=== PATIENT | female | born 1950 | race Caucasian/White ===

== ENCOUNTER 2019-11-22 19:49 | Emergency (ER) | payer MEDICARE ==
--- NOTE | 2019-11-22 20:49 | ERPHSYRPT ---
- History of Present Illness Time Seen by Provider: 11/22/19 20:30 Source: patient, family Exam Limitations: no limitations Physician History: 69 y/o white female with h/o chronic anxiety and panic disorder presents with 2 day h/o worsening anxiety. pt take lorazepam tid. last dose 2pm. pt denies cp, denies abd pain. pt states she cannot be admitted or transferred because she has to care for her . pt denies suicidal thoughts and denies homicidal thoughts. she agrees to to blood draw, urinalysis, and ekg then would like something for sleep tonight so she can be evaluated by her pcp in the am. Timing/Duration: day(s) (2) Severity of Symptoms-Max: moderate Severity of Symptoms-Current: moderate Context related to: other (chronic intermittent issue) Associated Symptoms: anxiety, No ingestion, No suicidal ideation Previous symptoms: same symptoms as today Allergies/Adverse Reactions: Sulfa (Sulfonamide Antibiotics) Adverse Reaction (Verified 11/22/19 20:48) Swelling of Tongue and Lips Home Medications: Levothyroxine Sodium 100 Mcg [Synthroid 100 Mcg] 100 mcg PO DAILY 11/22/19 [History] Levothyroxine Sodium 25 Mcg [Synthroid 25 Mcg] 25 mcg PO DAILY 11/22/19 [ History] Lorazepam 1 mg PO TID PRN PRN 11/22/19 [History] Trazodone HCl 50 mg PO HS 11/22/19 [History] - Past Medical History Neurological History: No Pertinent History ENT History: No Pertinent History Cardiac History: No Pertinent History Respiratory History: No Pertinent History Endocrine Medical History: No Pertinent History Musculoskeletal History: No Pertinent History GI Medical History: No Pertinent History History: No Pertinent History Psycho-Social History: No Pertinent History Female Reproductive Disorders: No Pertinent History - Past Surgical History Neuro Surgical History: No Pertinent History Cardiac: No Pertinent History Respiratory: No Pertinent History Gastrointestinal: No Pertinent History Genitourinary: No Pertinent History Musculoskeletal: No Pertinent History Female Surgical History: No Pertinent History - Review of Systems Constitutional: No Symptoms Eyes: No Symptoms Ears, Nose, & Throat: No Symptoms Respiratory: No Symptoms Cardiac: No Symptoms Abdominal/Gastrointestinal: No Symptoms Genitourinary Symptoms: No Symptoms Musculoskeletal: No Symptoms Psychological: Anxiety, No Alcohol Abuse, No Suicidal Ideations, No Homicidal Ideations, No Hallucinations Endocrine: No Symptoms Hematologic/Lymphatic: No Symptoms Immunological/Allergic: No Symptoms All Other Systems: Reviewed and Negative - Nursing Vital Signs Nursing Vital Signs: Initial Vital Signs Temperature 97.9 F 11/22/19 20:22 Pulse Rate 75 11/22/19 20:22 Respiratory Rate 22 11/22/19 20:22 Blood Pressure 224/104 11/22/19 20:22 O2 Sat by Pulse Oximetry 98 11/22/19 20:22 Pain Scale Pain Intensity 0 - Physical Exam General Appearance: no apparent distress, alert, anxiety Eyes, Ears, Nose, Throat Exam: normal ENT inspection, moist mucous membranes Neck Exam: normal inspection, non-tender, supple, full range of motion Respiratory Exam: normal breath sounds, lungs clear, airway intact, No chest tenderness, No respiratory distress Cardiovascular Exam: regular rate/rhythm, normal heart sounds, normal peripheral pulses Gastrointestinal/Abdominal Exam: soft, normal bowel sounds, No tenderness Neurological Exam: alert, normal mood/affect, calm, speed winder II-XII nml as tested, oriented x 3 Appearance: appropriate appearance Behavior/Eye Contact/Speech: alert & cooperative Thoughts/Hallucinations: normal thought pattern, no apparent hallucination, obsessive, No auditory hallucinations Skin Exam: normal color, warm, dry SpO2 Interpretation: normal SpO2: 98 O2 Delivery: Room Air Ordered Tests: Active Orders 24 hr Category Date Time Status EKG-ER Only STAT Care 11/22/19 20:54 Active IV Insertion STAT Care 11/22/19 20:54 Active ACETAMINOPHEN Stat Lab 11/22/19 21:19 Completed CBC W DIFF Stat Lab 11/22/19 21:19 Completed CMP Stat Lab 11/22/19 21:19 Completed ETHYL ALCOHOL Stat Lab 11/22/19 21:19 Completed Manual Differential NC Stat Lab 11/22/19 21:19 Completed SALICYLATE Stat Lab 11/22/19 21:19 Completed UA W/RFX UR CULTURE Stat Lab 11/22/19 21:30 Completed Urine Triage Profile Stat Lab 11/22/19 21:30 Completed Medication Summary Discontinued Medications Generic Name Dose Route Start Last Admin Trade Name Freq PRN Reason Stop Dose Admin Lorazepam 1 mg 11/22/19 20:54 11/22/19 21:30 Ativan 2 Mg/1 Ml Vial IV 11/22/19 20:55 1 mg STAT ONE Administration Lorazepam Confirm 11/22/19 21:25 Ativan 2 Mg/1 Ml Vial Administered 11/22/19 21:26 Dose 2 mg .ROUTE .STK-MED ONE Lab/Rad Data: Laboratory Result Diagrams 11/22/19 21:19 11/22/19 21:19 Laboratory Results 11/22/19 11/22/19 11/22/19 Range/Units 21:30 21:30 21:19 WBC (4.0-10.5) K/mm3 RBC (4.1-5.4) M/mm3 Hgb (12.0-16.0) gm/dl Hct (35-47) % MCV (78-100) fl MCH (26-32) pg MCHC (32-36) g/dl RDW (11.5-14.0) % Plt Count (150-450) K/mm3 MPV (7.5-11.0) fl Sodium 142 (137-145) mmol/L Potassium 3.8 (3.5-5.1) mmol/L Chloride 102 (98-107) mmol/L Carbon Dioxide 29 (22-30) mmol/L Anion Gap 14.4 (5-15) MEQ/L BUN 22 H (7-17) mg/dL Creatinine 0.74 (0.52-1.04) mg/dL Estimated GFR > 60.0 ML/MIN Glucose 106 (74-106) mg/dL Calcium 10.5 H (8.4-10.2) mg/dL Total Bilirubin 0.40 (0.2-1.3) mg/dL AST 24 (14-36) U/L ALT 16 (0-35) U/L Alkaline Phosphatase 62 (38-126) U/L Serum Total Protein 7.9 (6.3-8.2) g/dL Albumin 4.7 (3.5-5.0) g/dL Urine Color COLORLESS (YELLOW) Urine Appearance CLEAR (CLEAR) Urine pH 7.0 (5-6) Ur Specific [place] 1.004 (1.005-1.025) Urine Protein NEGATIVE (Negative) Urine Ketones NEGATIVE (NEGATIVE) Urine Blood NEGATIVE (0-5) Fili/ul Urine Nitrite NEGATIVE (NEGATIVE) Urine Bilirubin NEGATIVE (NEGATIVE) Urine Urobilinogen NEGATIVE (0-1) mg/dL Ur Leukocyte Esterase SMALL (NEGATIVE) Urine WBC (Auto) 0-2 (0-5) /HPF Urine RBC (Auto) NONE (0-2) /HPF U Epithel Cells (Auto) NONE (FEW) /HPF Urine Bacteria (Auto) NONE (NEGATIVE) /HPF Urine Mucus (Auto) SLIGHT (NEGATIVE) /HPF Urine Culture Reflexed NO (NO) Urine Glucose NEGATIVE (NEGATIVE) mg/dL Salicylates < 1.0 L (2-20) mg/dL Urine Opiates Level NEGATIVE (NEGATIVE) Ur Methadone NEGATIVE (NEGATIVE) Acetaminophen < 10 L (10-30) ug/ml Urine Barbiturates NEGATIVE (NEGATIVE) Ur Phencyclidine (PCP) NEGATIVE (NEGATIVE) Urine Amphetamine NEGATIVE (NEGATIVE) U Benzodiazepine Level NEGATIVE (NEGATIVE) Urine Cocaine NEGATIVE (NEGATIVE) Urine Marijuana (THC) NEGATIVE (NEGATIVE) Ethyl Alcohol < 10 (0-10) mg/dL 11/22/19 Range/Units 21:19 WBC 6.1 (4.0-10.5) K/mm3 RBC 4.41 (4.1-5.4) M/mm3 Hgb 13.5 (12.0-16.0) gm/dl Hct 40.9 (35-47) % MCV 92.7 (78-100) fl MCH 30.6 (26-32) pg MCHC 33.0 (32-36) g/dl RDW 13.7 (11.5-14.0) % Plt Count 156 (150-450) K/mm3 MPV 10.6 (7.5-11.0) fl Sodium (137-145) mmol/L Potassium (3.5-5.1) mmol/L Chloride (98-107) mmol/L Carbon Dioxide (22-30) mmol/L Anion Gap (5-15) MEQ/L BUN (7-17) mg/dL Creatinine (0.52-1.04) mg/dL Estimated GFR ML/MIN Glucose (74-106) mg/dL Calcium (8.4-10.2) mg/dL Total Bilirubin (0.2-1.3) mg/dL AST (14-36) U/L ALT (0-35) U/L Alkaline Phosphatase (38-126) U/L Serum Total Protein (6.3-8.2) g/dL Albumin (3.5-5.0) g/dL Urine Color (YELLOW) Urine Appearance (CLEAR) Urine pH (5-6) Ur Specific [place] (1.005-1.025) Urine Protein (Negative) Urine Ketones (NEGATIVE) Urine Blood (0-5) Fili/ul Urine Nitrite (NEGATIVE) Urine Bilirubin (NEGATIVE) Urine Urobilinogen (0-1) mg/dL Ur Leukocyte Esterase (NEGATIVE) Urine WBC (Auto) (0-5) /HPF Urine RBC (Auto) (0-2) /HPF U Epithel Cells (Auto) (FEW) /HPF Urine Bacteria (Auto) (NEGATIVE) /HPF Urine Mucus (Auto) (NEGATIVE) /HPF Urine Culture Reflexed (NO) Urine Glucose (NEGATIVE) mg/dL Salicylates (2-20) mg/dL Urine Opiates Level (NEGATIVE) Ur Methadone (NEGATIVE) Acetaminophen (10-30) ug/ml Urine Barbiturates (NEGATIVE) Ur Phencyclidine (PCP) (NEGATIVE) Urine Amphetamine (NEGATIVE) U Benzodiazepine Level (NEGATIVE) Urine Cocaine (NEGATIVE) Urine Marijuana (THC) (NEGATIVE) Ethyl Alcohol (0-10) mg/dL - Progress Progress: improved Counseled pt/family regarding: lab results, diagnosis, need for follow-up, rad results - Departure Departure Disposition: Home Clinical Impression: Anxiety, Panic attack Condition: Stable Critical Care Time: No Referrals: BILLY LEYVA [NON-STAFF PHY W/O PRIVILEGES] - Additional Instructions: take your medications as prescribed. follow up with your primary doctor tomorrow morning as you have planned.
[2019-11-22] MEDS ORDERED: Ativan 2 MG/1 ML VIAL IV ONE ×2 (20:54→22:45)
[2019-11-22 21:21] LABS: Hematocrit 40.9 % (35-47); Hemoglobin 13.5 gm/dl (12.0-16.0); Mean Cell Volume 92.7 fl (78-100); Mean Corpuscular Hemoglobin 30.6 pg (26-32); Mean Platelet Volume 10.6 fl (7.5-11.0); Platelet Count 156 K/mm3 (150-450); Red Blood Count 4.41 M/mm3 (4.1-5.4); Red Cell Distribution Width 13.7 % (11.5-14.0); White Blood Count 6.1 K/mm3 (4.0-10.5)
[2019-11-22] MEDS ORDERED: Ativan 2 MG/1 ML VIAL ONE ×2 (21:25→23:00)
[2019-11-22 21:37] LABS: ALBUMIN 4.7 g/dL (3.5-5.0); ALKALINE PHOSPHATASE 62 U/L (38-126); ANION GAP 14.4 MEQ/L (5-15); BLOOD UREA NITROGEN 22 mg/dL (7-17); CHLORIDE 102 mmol/L (98-107); Calcium 10.5 mg/dL (8.4-10.2); Carbon Dioxide 29 mmol/L (22-30); Creatinine 1 0.74 mg/dL (0.52-1.04); Glucose 106 mg/dL (74-106); Potassium 3.8 mmol/L (3.5-5.1); SGOT/AST 24 U/L (14-36); SGPT/ALT 16 U/L (0-35); SODIUM 142 mmol/L (137-145); Total Protein 7.9 g/dL (6.3-8.2)
[2019-11-22 21:38] LABS: Appearance CLEAR (CLEAR); Bilirubin NEGATIVE (NEGATIVE); Blood NEGATIVE Ery/ul (0-5); Glucose NEGATIVE (NEGATIVE); Ketones NEGATIVE (NEGATIVE); Leukocyte Esterase SMALL (NEGATIVE); Mucus SLIGHT /HPF (NEGATIVE); Nitrite NEGATIVE (NEGATIVE); Protein,Urine Dip NEGATIVE (Negative); Specific Gravity 1.004 (1.005-1.025); Urobilinogen NEGATIVE mg/dL (0-1); WBC 0-2 /HPF (0-5)
[2019-11-22 21:39] LABS: ACETAMINOPHEN < 10 ug/ml (10-30); ETHYL ALCOHOL < 10 mg/dL (0-10); SALICYLATE < 1.0 mg/dL (2-20)
[2019-11-22 21:57] LABS: Amphetamine,Urine NEGATIVE (NEGATIVE); Barbiturate,Urine NEGATIVE (NEGATIVE); Benzodiazepine,Urine NEGATIVE (NEGATIVE); Methadone,Urine NEGATIVE (NEGATIVE); Opiate,Urine NEGATIVE (NEGATIVE); PCP,Urine NEGATIVE (NEGATIVE); THC,Urine NEGATIVE (NEGATIVE)
[2019-11-22 22:03] LABS: Cocaine,Urine NEGATIVE (NEGATIVE)
[2019-11-22 23:09] VITALS: BP 184/88
[2019-11-22 23:20] VITALS: PULSE 65; O2SAT 94
[2019-11-22 23:58] LABS: Lymphocytes 44 % (24-44); Monocyte 3 % (0.0-12.0); Neutrophils 53 % (36.0-66.0); Platelet Estimate NORMAL (NORMAL); Total Cells Counted 100
== END 2019-11-22 23:20 | disposition home or self-care (01) ==
LOC: ED 19:49
DX: F41.9 Anxiety disorder, unspecified (principal); F41.0 Panic disorder [episodic paroxysmal anxiety]
CPT/HCPCS: 36000; 36415; 80053; 80307; 81001; 85025; 93005; 96374; 99284; G0480; G0481; J2060

== ENCOUNTER 2024-11-06 09:52 | Emergency (ER) | payer MEDICARE ==
[2024-11-06 10:15] VITALS: TEMP 97.9
--- NOTE | 2024-11-06 10:26 | ERPHSYRPT ---
- History of Present Illness Time Seen by Provider: 11/06/24 10:26 Source: patient Exam Limitations: no limitations Patient Subjective Stated Complaint: UTI symptoms/fall Triage Nursing Assessment: Patient brought into ED per w/c and transferred self to bed. Patient A+O X 3. Patient's skin pink, warm and dry. Patient complains of fall and UTI symptoms. Patient reports having 2 falls within the past week due to low blood sugar. Patient complains of right lower back pain 5/10. Patient has mulitple healing bruises noted to right hip and urmila arms. Patient also complains dysuria and hematuria that started this am. Physician History: The patient presents with burning and blood in the urine, and a recent fall with head injury. She experienced a fall on morning, resulting in a head injury and significant back pain. She is on Plavix, which raises concerns about potential bleeding. She does not recall hitting any other part of her body during the fall. No hip pain is reported, and she can move her hip with good strength. She reports a burning sensation and blood in her urine, which is a primary reason for seeking medical attention. Occasional nausea is also noted, but there is no history of kidney stones. She has been experiencing persistent diarrhea since casey COVID-19 in September. There has been no antibiotic use, and no blood has been noticed in the stool. The diarrhea is frequent enough that she might be able to provide a sample during the visit. She experienced a significant drop in blood sugar, recorded at 36, which was noticed on Thursday after appearing 'out of it' on . The blood sugar level has since returned to normal. Occurred: days ago (4) Reason for Fall: lightheaded Injuries/Pain Location: head, back (right) Loss of Consciousness: no loss of consciousness Quality: sharpness (right flank) Severity of Pain-Max: moderate Severity of Pain-Current: moderate Modifying Factors: Improves With: nothing. Worsens With: movement Associated Symptoms (Fall): back pain (right flank), confusion, dizziness, headache, nausea, No abdominal pain, No chest pain, No extremity injury, No neck pain, No shortness of breath, No slurred speech, No vomiting Allergies/Adverse Reactions: Sulfa (Sulfonamide Antibiotics) Adverse Reaction (Verified 11/06/24 10:17) Swelling of Tongue and Lips Home Medications: LORazepam [Lorazepam] 1 mg PO TID PRN PRN 11/22/19 [History] Levothyroxine Sodium 100 Mcg [Synthroid 100 Mcg] 100 mcg PO DAILY 11/22/19 [History] Levothyroxine Sodium 25 Mcg [Synthroid 25 Mcg] 25 mcg PO DAILY 11/22/19 [History] Trazodone HCl 50 mg PO HS 11/22/19 [History] Hx Tetanus, Diphtheria Vaccination/Date Given: Yes Hx Influenza Vaccination/Date Given: Yes Hx Pneumococcal Vaccination/Date Given: No Immunizations Up to Date: Yes Travel Risk - International Travel Have you traveled outside of the country in past 3 weeks: No - Emerging Infectious Disease Are you exhibiting symptoms associated with any current EIDs: No - Review of Systems All Other Systems: Reviewed and Negative - Past Medical History Pertinent Past Medical History: No Neurological History: No Pertinent History ENT History: No Pertinent History Cardiac History: Coronary Artery Disease, Hypertension Respiratory History: No Pertinent History Endocrine Medical History: Hypothyroidism Musculoskeletal History: No Pertinent History GI Medical History: No Pertinent History History: No Pertinent History Psycho-Social History: Anxiety, Depression Female Reproductive Disorders: No Pertinent History Other Medical History: OCD - Past Surgical History Past Surgical History: Yes Neuro Surgical History: No Pertinent History Cardiac: No Pertinent History Respiratory: No Pertinent History Gastrointestinal: No Pertinent History Genitourinary: No Pertinent History Musculoskeletal: No Pertinent History Female Surgical History: No Pertinent History - Social History Smoking Status: Never smoker Exposure to second hand smoke: No Drug Use: none Patient Lives Alone: No - Social Determinants of Health Will the patient participate in the screening: Yes Do you worry about a steady place to live?: No Do you have any problems with any of the following?: No known problems In the past 12 months,have you had to go without utilities?: No Transportation Issues: No Has anyone in your support network made you feel unsafe?: No Have you or anyone in your house had to go without enough: No - Nursing Vital Signs Nursing Vital Signs: Initial Vital Signs Temperature 97.9 F 11/06/24 10:06 Pulse Rate 68 11/06/24 10:06 Respiratory Rate 20 11/06/24 10:06 Blood Pressure 173/68 11/06/24 10:06 O2 Sat by Pulse Oximetry 98 11/06/24 10:06 Pain Scale Pain Intensity 5 - Kennedy Coma Score Best Eye Response (Kennedy): (4) open spontaneously Best Verbal Response (Kennedy): (5) oriented Best Motor Response (Kennedy): (6) obeys commands Kennedy Total: 15 - Physical Exam General Appearance: no apparent distress Head Injury: no evidence of injury Eye Exam: PERRL/EOMI, eyes nml inspection ENT Exam: airway nml Neck Exam: supple, trachea midline, full range of motion, normal alignment Respiratory/Chest Exam: No respiratory distress Cardiovascular Exam: regular rate/rhythm, No edema Gastrointestinal Exam: soft, tenderness (right flank), No distention, No mass, No guarding Back Exam: CVA tenderness (right) Neurologic Exam: alert, oriented x 3, cooperative, normal mood/affect, nml cerebellar function Skin Exam: normal color, warm, dry, No rash SpO2 Interpretation: normal SpO2: 98 O2 Delivery: Room Air - Course Nursing assessment & vital signs reviewed: Yes - CT Exams Head CT Interpretation: Tele-radiologist Report, Other (right parietooccipital hypodense area of encephalomalacia likely old ischemic/vascular insult, micr ovascular ischemic changes with b/l basal ganglia lacunar infarcts, no bleed, no fracture) Abdomen/Pelvis CT Interpretation: Tele-radiologist Report, Other (mild fullness of extrarenal pelvises b/l, right proximal ureter relative thickened wall with mild periureteric fat stranding, right renal cyst, multiple hepatic and splenic calcific foci likely granulomatous) Ordered Tests: Active Orders 24 hr Category Date Time Status ABDOMEN AND PELVIS W/0 CONTRAS [CT] Stat Exams 11/06/24 10:58 Taken HEAD WITHOUT CONTRAST [CT] Stat Exams 11/06/24 10:52 Completed CBC W DIFF Stat Lab 11/06/24 10:49 Results CMP Stat Lab 11/06/24 10:49 Completed CULTURE,URINE Stat Lab 11/06/24 10:11 Received Erythrocyte Sedimentation Rate Stat Lab 11/06/24 10:49 Completed LIPASE Stat Lab 11/06/24 10:49 Completed Lactic Acid Stat Lab 11/06/24 10:34 Completed OB-FECAL SCREEN Stat Lab 11/06/24 Ordered Peripheral Smear ordered Stat Lab 11/06/24 10:49 Results TSH, 3RD Generation Stat Lab 11/06/24 10:49 Completed UA W/RFX UR CULTURE Stat Lab 11/06/24 10:11 Completed Medication Summary Discontinued Medications Generic Name Dose Route Start Last Admin Trade Name Dangelo PRN Reason Stop Dose Admin Sodium Chloride 1,000 mls @ 999 mls/hr 11/06/24 10:34 11/06/24 10:56 Sodium Chloride 0.9% 1000 Ml IV 11/06/24 11:34 999 mls/hr .Q1H1M STA Administration Ceftriaxone Sodium 2 gm in 100 mls @ 200 mls/hr 11/06/24 10:55 11/06/24 10:58 Rocephin 2 Gm/100 Ml Nacl IV 11/06/24 11:24 200 ml/hr STAT ONE 200 mls/hr Administration Sodium Chloride Confirm 11/06/24 10:54 Sodium Chloride 0.9% 1000 Ml Administered 11/06/24 10:55 Dose 1,000 mls @ ud .ROUTE .STK-MED ONE Ceftriaxone Sodium Confirm 11/06/24 10:57 Rocephin 2 Gm/100 Ml Nacl Administered 11/06/24 10:58 Dose 2 gm in 100 mls @ ud IV .STK-MED ONE Ondansetron HCl 4 mg 11/06/24 10:34 11/06/24 10:57 Ondansetron Hcl 4 Mg/2 Ml Vial IV 11/06/24 10:35 4 mg STAT ONE Administration Ondansetron HCl Confirm 11/06/24 10:54 Ondansetron Hcl 4 Mg/2 Ml Vial Administered 11/06/24 10:55 Dose 4 mg .ROUTE .STK-MED ONE Lab/Rad Data: Laboratory Result Diagrams 11/06/24 10:49 11/06/24 10:49 Laboratory Results 11/06/24 11/06/24 11/06/24 Range/Units 10:49 10:49 10:49 WBC (3.98-10.04) x10^3/uL RBC (3.93-5.22) x10^6/uL Hgb (11.2-15.7) g/dL Hct (34.1-44.9) % MCV (79.4-94.8) fL MCH (25.6-32.2) pg MCHC (32.2-35.5) g/dL RDW (11.7-14.4) % Plt Count (182-369) x10^3/uL MPV (9.4-12.3) fL Gran % (34.0-71.1) % Immature Gran % (Auto) (0.001-0.429) % Nucleat RBC Rel Count (0.00-0.2) % Eos # (Auto) (0.04-0.36) x10^3/uL Immature Gran # (Auto) (0.001-0.031) x10^3u/L Absolute Lymphs (auto) (1.18-3.74) x10^3/uL Absolute Monos (auto) (0.24-0.86) x10^3/uL Absolute Nucleated RBC (0.00-0.012) x10^3u/L Lymphocytes % (19.3-51.7) % Monocytes % (4.7-12.5) % Eosinophils % (0.7-5.8) % Basophils % (0.1-1.2) % Absolute Granulocytes (1.56-6.13) x10^3/uL Basophils # (0.01-0.08) x10^3/uL Peripher Smr Path Cons ESR 12 (0-20) mm/hr Sodium 140 (135-145) mmol/L Potassium 3.4 L (3.5-5.1) mmol/L Chloride 111 H (98-107) mmol/L Carbon Dioxide 22 (22-30) mmol/L Anion Gap 10.7 (5-15) MEQ/L BUN 7 (7-17) mg/dL Creatinine 0.72 (0.52-1.04) mg/dL Estimated GFR 86.6 ML/MIN Glucose 209 H (74-106) mg/dL Lactic Acid (0.4-2.0) Calcium 9.0 (8.4-10.2) mg/dL Total Bilirubin 0.90 (0.2-1.3) mg/dL AST 24 (14-36) U/L ALT 18 (0-35) U/L Alkaline Phosphatase 45 (38-126) U/L Serum Total Protein 6.8 (6.3-8.2) g/dL Albumin 4.1 (3.5-5.0) g/dL Lipase 51 (23-300) U/L Free T4 2.24 H (0.78-2.19) ng/dL TSH 3rd Generation < 0.015 L (0.470-4.680) mIU/L Urine Color (Yellow) Urine Appearance (Clear) Urine pH (4.6-8.0) Ur Specific [place] (1.005-1.030) Urine Protein (Negative) Urine Glucose (UA) (Negative) mg/dL Urine Ketones (Negative) Urine Blood (Negative) Urine Nitrite (Negative) Urine Bilirubin (Negative) Urine Urobilinogen (0.2) mg/dL Ur Leukocyte Esterase (Negative) U Hyaline Cast (Auto) (0-2) /LPF Urine Microscopic RBC (0-5) /HPF Urine Microscopic WBC (0-5) /HPF Ur Epithelial Cells (None Seen) /HPF Urine Bacteria (None Seen) /HPF Urine Culture Reflexed (NO) Slides for Path Review 11/06/24 11/06/24 11/06/24 Range/Units 10:49 10:34 10:11 WBC 5.5 (3.98-10.04) x10^3/uL RBC 3.55 L (3.93-5.22) x10^6/uL Hgb 10.4 L (11.2-15.7) g/dL Hct 31.5 L (34.1-44.9) % MCV 88.7 (79.4-94.8) fL MCH 29.3 (25.6-32.2) pg MCHC 33.0 (32.2-35.5) g/dL RDW 14.7 H (11.7-14.4) % Plt Count 90 L (182-369) x10^3/uL MPV 11.9 (9.4-12.3) fL Gran % 64.5 (34.0-71.1) % Immature Gran % (Auto) 0.5 H (0.001-0.429) % Nucleat RBC Rel Count 0.0 (0.00-0.2) % Eos # (Auto) 0 L (0.04-0.36) x10^3/uL Immature Gran # (Auto) 0.03 (0.001-0.031) x10^3u/L Absolute Lymphs (auto) 1.43 (1.18-3.74) x10^3/uL Absolute Monos (auto) 0.49 (0.24-0.86) x10^3/uL Absolute Nucleated RBC 0.00 (0.00-0.012) x10^3u/L Lymphocytes % 25.9 (19.3-51.7) % Monocytes % 8.9 (4.7-12.5) % Eosinophils % 0.0 L (0.7-5.8) % Basophils % 0.2 (0.1-1.2) % Absolute Granulocytes 3.57 (1.56-6.13) x10^3/uL Basophils # 0.01 (0.01-0.08) x10^3/uL Peripher Smr Path Cons Pending ESR (0-20) mm/hr Sodium (135-145) mmol/L Potassium (3.5-5.1) mmol/L Chloride (98-107) mmol/L Carbon Dioxide (22-30) mmol/L Anion Gap (5-15) MEQ/L BUN (7-17) mg/dL Creatinine (0.52-1.04) mg/dL Estimated GFR ML/MIN Glucose (74-106) mg/dL Lactic Acid 0.8 (0.4-2.0) Calcium (8.4-10.2) mg/dL Total Bilirubin (0.2-1.3) mg/dL AST (14-36) U/L ALT (0-35) U/L Alkaline Phosphatase (38-126) U/L Serum Total Protein (6.3-8.2) g/dL Albumin (3.5-5.0) g/dL Lipase (23-300) U/L Free T4 (0.78-2.19) ng/dL TSH 3rd Generation (0.470-4.680) mIU/L Urine Color Dark Yellow A (Yellow) Urine Appearance Turbid A (Clear) Urine pH 6.0 (4.6-8.0) Ur Specific [place] 1.015 (1.005-1.030) Urine Protein 300 A (Negative) Urine Glucose (UA) 100 A (Negative) mg/dL Urine Ketones Negative (Negative) Urine Blood Large A (Negative) Urine Nitrite Positive A (Negative) Urine Bilirubin Negative (Negative) Urine Urobilinogen 0.2 (0.2) mg/dL Ur Leukocyte Esterase Large A (Negative) U Hyaline Cast (Auto) NONE SEEN (0-2) /LPF Urine Microscopic RBC >100 A (0-5) /HPF Urine Microscopic WBC >100 A (0-5) /HPF Ur Epithelial Cells Rare (None Seen) /HPF Urine Bacteria Few A (None Seen) /HPF Urine Culture Reflexed YES (NO) Slides for Path Review YES - Progress Progress: improved Progress Note: Head Injury Fell and hit head, resulting in a large bump. On Plavix, increasing risk of bleeding. Concern for potential intracranial injury due to fall and anticoagulant use. - Order head CT scan to assess for intracranial injury. Low Back Pain Reports significant low back pain following a fall. Hip assessment shows no evidence of fracture. Pain likely related to fall, necessitating further imaging to rule out serious injury. Pain more consistent with right flank with hematuria will order CT abd/pelvis to assess for nephrolithiasis. Hematuria and Dysuria Presents with burning sensation and blood in urine. Differential diagnosis includes urinary tract infection and kidney stones. Reports no history of kidney stones. Nausea and absence of abdominal pain suggest possible kidney stones. - Send urine sample for analysis to check for infection. - Order CT scan of the abdomen to rule out kidney stones. Chronic Diarrhea Experiencing chronic diarrhea since COVID-19 infection in September. Concern for possible colitis or infection such as C. difficile, especially given absence of antibiotic use. Lack of gallbladder may contribute to diarrhea. - Obtain stool sample and run stool studies. 11/06/24 11:26 Patient's CBC consistent with pancytopenia, WBC 5.5, Hb 10.4, Platelets 90. Will order peripheral smear and advise follow up with hematology for further evaluation. UA consistent with UTI, given Ceftriaxone 2g IV in ER today, will DC on Keflex pending urine cultures. 11/06/24 12:05 CT head neg for acute hemorrhage, previous CVA Hx and PE not consistent with new neurological pathology. CT abd/pelvis shows signs of ureteritis which correlates with UTI. Will DC home on Keflex 500mg BID x 7 days pending UCx. Counseled pt/family regarding: lab results, diagnosis, need for follow-up, rad results Medical Desision Making - Diagnostic Testing Diagnostic test were ordered, analyzed, and reviewed by me: Yes Radiological Interpretation: Interpreted by me, Reviewed by me, Teleradiologist Report - Risk of complications The pt has a mod risk of morbidity or mortality based on: Need for prescription drug management - Departure Departure Disposition: Home Clinical Impression: UTI (urinary tract infection), Pancytopenia, Low TSH level, Elevated serum free T4 level, Hyperglycemia Condition: Good Critical Care Time: No Referrals: BILLY LEYVA [Primary Care Provider] - Follow up/PCP as directed SERJIO ALVARENGA MD [NON-STAFF PHY W/O PRIVILEGES] - Follow up/PCP as directed Instructions: Preventing falls in adults, Urinary tract infection in adults - ED discharge instructions Prescriptions: Cephalexin Mh 500 mg [Keflex 500 mg] 500 mg PO BID 7 Days #14 cap
[2024-11-06 10:48] LABS: Appearance Turbid (Clear); Bacteria Few /HPF (None Seen); Bilirubin Negative (Negative); Blood Large (Negative); Epithelial Cells Rare /HPF (None Seen); Glucose, Urine 100 mg/dL (Negative); Hyaline Casts NONE SEEN /LPF (0-2); Ketones Negative (Negative); Leukocyte Esterase Large (Negative); Nitrite Positive (Negative); Protein,Urine Dip 300 (Negative); RBC >100 /HPF (0-5); Specific Gravity 1.015 (1.005-1.030); Urobilinogen 0.2 mg/dL (0.2); WBC >100 /HPF (0-5)
[2024-11-06 10:51] LABS: Absolute Neutrophil Ct (ANC) 3.57 x10^3/uL (1.56-6.13); BASOPHIL % 0.2 % (0.1-1.2); Basophil (Absolute #) 0.01 x10^3/uL (0.01-0.08); Eosinophil (Absolute #) 0 x10^3/uL (0.04-0.36); Hematocrit 31.5 % (34.1-44.9); Hemoglobin 10.4 g/dL (11.2-15.7); IMMATURE GRAN # 0.03 x10^3u/L (0.001-0.031); IMMATURE GRAN % 0.5 % (0.001-0.429); Lymphocyte (Absolute #) 1.43 x10^3/uL (1.18-3.74); Lymphocytes % 25.9 % (19.3-51.7); Mean Cell Volume 88.7 fL (79.4-94.8); Mean Corpuscular Hemoglobin 29.3 pg (25.6-32.2); Mean Platelet Volume 11.9 fL (9.4-12.3); Monocyte (Absolute #) 0.49 x10^3/uL (0.24-0.86); Monocytes % 8.9 % (4.7-12.5); Neutrophil % 64.5 % (34.0-71.1); Platelet Count 90 x10^3/uL (182-369); Red Blood Count 3.55 x10^6/uL (3.93-5.22); Red Cell Distribution Width 14.7 % (11.7-14.4); White Blood Count 5.5 x10^3/uL (3.98-10.04)
[2024-11-06] MEDS ORDERED: Zofran 4 MG/2 ML VIAL ONE (10:54)
[2024-11-06] MEDS ORDERED: Sodium Chloride 0.9% 1000 ML 1,000 ML ONE (10:54)
[2024-11-06] MEDS: Sodium Chloride 0.9% 1000 ML 1,000 ML IV STA (10:56)
[2024-11-06] MEDS ORDERED: ROCEPHIN 2 GM/100 ML NACL 2 GM/100 ML IVPB IV ONE (10:57)
[2024-11-06] MEDS: Zofran 4 MG/2 ML VIAL IV ONE (10:57)
[2024-11-06] MEDS: ROCEPHIN 2 GM/100 ML NACL 2 GM/100 ML IVPB IV ONE (10:58)
[2024-11-06 11:08] LABS: Slide Review 1 YES
[2024-11-06 11:33] LABS: ALBUMIN 4.1 g/dL (3.5-5.0); ALKALINE PHOSPHATASE 45 U/L (38-126); ANION GAP 10.7 MEQ/L (5-15); BLOOD UREA NITROGEN 7 mg/dL (7-17); CHLORIDE 111 mmol/L (98-107); Carbon Dioxide 22 mmol/L (22-30); Creatinine 1 0.72 mg/dL (0.52-1.04); EST GLOMERULAR FILTRATION RATE 86.6 ML/MIN; Glucose 209 mg/dL (74-106); LIPASE 51 U/L (23-300); Potassium 3.4 mmol/L (3.5-5.1); SGOT/AST 24 U/L (14-36); SGPT/ALT 18 U/L (0-35); SODIUM 140 mmol/L (135-145); TSH, 3RD Generation < 0.015 mIU/L (0.470-4.680); Total Protein 6.8 g/dL (6.3-8.2)
--- NOTE | 2024-11-06 11:44 | XRAY ---
CLINICAL HISTORY: headache, fall COMPARISON: None. TECHNIQUE: An axial non-contrast CT scan of the brain was performed from the skull base to the high parietal region with multiplanar reconstructions. One of the following dose reduction techniques was utilized for this exam: Automated exposure control, adjustment of the mA and/or kV according to patient size, and use of iterative reconstruction. FINDINGS: Brain Parenchyma: Right parieto-occipital hypodense area of encephalomalacia likely sequel of old ischemic/vascular insult. Exaggerated periventricular deep white matter hypodensities with bilateral subcortical and periventriclaur hypodensities. Bilateral basal ganglia old lacunar infarcts. Normal attenuation of the cerebellum, and brainstem. Ventricular System: Dilatation of the ventricular system, with no midline shift. Subarachnoid Spaces: Widened extra-axial subarachnoid spaces with prominent gyri and deep sulci of the brain, prominent cerebellar folia, basal cisterns, and Zbigniew fissures. No evidence of subarachnoid hemorrhage or extra-axial fluid collections. Cerebellum and Brainstem: Normal size and signal. No masses, lesions, or areas of abnormal signal. Orbits: Normal appearance of the globes, optic nerves, and extraocular muscles. No evidence of orbital masses or abnormal signals. Sinuses: Right maxillary sinusitis. Clear other paranasal sinuses. No evidence of sinusitis or mucosal thickening. Mastoid Air Cells: Clear mastoid air cells. No evidence of mastoiditis. Skull: Normal skull morphology. IMPRESSION: 1. Right parieto-occipital hypodense area of encephalomalacia likely sequel of old ischemic/vascular insult. 2. Microvascular ischemic changes with bilateral basal ganglia lacunar infarcts. 3. Involutional brain changes. 4. No intracranial bleeding. 5. No fractures were detected. 6. If acute ischemic insult is clinically suspected, then further evaluation by MR brain with diffusion would be the modality of choice. Electronically Signed by: Katelin Craig MD. (11/06/2024 11:39:52 EST)
--- NOTE | 2024-11-06 12:05 | XRAY ---
CLINICAL HISTORY: right flank pain COMPARISON: No prior studies are available for comparison. TECHNIQUE: Non-contrast CT of the abdomen and pelvis was performed, with the following protocol: axial images, and reconstructed coronal and sagittal images. One of the following dose reduction techniques was utilized for this exam: Automated exposure control, adjustment of the mA and/or kV according to patient size, and use of iterative reconstruction. FINDINGS: Abdomen: Liver: Normal in size, shape, and density. Two hepatic calcific foci, likely granulomatous. Gallbladder and Biliary System: The gallbladder is not seen and could be contracted/surgically removed, for clinical correlation. Pancreas: Pancreatic head, body, and tail are visualized and appear normal in size and density. No pancreatic masses or calcifications were noted. Spleen: Normal in size, shape, and density. Multiple splenic calcific, foci likely granulomatous. Kidneys and Adrenal Glands: Both kidneys are normal in size, shape, and position. Cortical thickness is within normal limits. No renal calculi. Bilateral renal pelvis dilatation could be extra-renal pelvis. Right proximal ureter relative thickened wall with mild periureteric fat stranding could be suggestive of ureteritis. No ureteric stones bilaterally. Right renal cyst measuring 25 mm Adrenal glands are unremarkable. Appendix: The appendix is normal in size without martin appendiceal fat stranding and without an appendicolith. No evidence of appendiceal abscess or perforation. Pelvis: Urinary Bladder: Normal in contour and wall thickness. No intraluminal lesions. Uterus: Normal in size and contour. No masses or abnormal thickening. Ovaries: Not well visualized but no gross abnormalities noted. Peritoneal and Retroperitoneal Structures: No free fluid or abnormal fluid collections were identified within the abdomen or pelvis. No lymphadenopathy was noted. Bowel: The visualized bowel loops are normal in caliber and appearance. No evidence of bowel obstruction or wall thickening. Non-complicated colonic diverticulae. Bones and Soft Tissues: Pelvic bones and soft tissues are unremarkable. No fractures or abnormal masses were identified. Bone: Lumbar degenerative changes with L4 1st degree non lytic spondylolisthesis. Lung: Bilateral basal thin atelectatic bands IMPRESSION: 1. Mild fullness of the extra-renal pelvises bilaterally 2. Right proximal ureter relative thickened wall with mild periureteric fat stranding could be suggestive of ureteritis. 3. Right renal cyst. 4. Multiple hepatic and splenic calcific foci, likely granulomatous. 5. The gallbladder is not seen and could be contracted/surgically removed, for clinical correlation. Electronically Signed by: Katelin Craig MD. (11/06/2024 12:01:57 EST)
[2024-11-06 12:17] VITALS: O2SAT 98
[2024-11-06 13:08] VITALS: BP 178/86; PULSE 70; RESP 16
== END 2024-11-06 12:50 | disposition home or self-care (01) ==
LOC: ED 09:52
DX: N39.0 Urinary tract infection, site not specified (principal); D61.818 Other pancytopenia; R94.6 Abnormal results of thyroid function studies; R73.9 Hyperglycemia, unspecified; R31.9 Hematuria, unspecified; R30.0 Dysuria; E03.9 Hypothyroidism, unspecified; Z79.899 Other long term (current) drug therapy
CPT/HCPCS: 36415; 70450; 74176; 80053; 81001; 83605; 83690; 84439; 84443; 85025; 85060; 85652; 87077; 87086; 87186; 96374; 96375; 99284; J0696; J2405